=== PATIENT | male | born 2000 | race Caucasian/White ===

== ENCOUNTER 2024-07-06 20:58 | Inpatient (IN) ==
[2024-07-06] MEDS: LACTATED RINGER'S 1,000 ML IV ONE (21:29)
[2024-07-06] MEDS: CEFEPIME 2000MG 2,000 MG/20 ML SYR IV STA (21:42)
[2024-07-06 21:52] LABS: Basophils # (auto) 0.05 K/uL (0.00-0.20); Basophils % (auto) 0.6 %; Eosinophils # (auto) 0.34 K/uL (0.00-0.50); Eosinophils % (auto) 3.8 %; Hematocrit (blood only) 47.3 % (42.0-52.0); Hemoglobin 16.2 g/dl (14.0-18.0); Immature Granulocytes # (auto) 0.14 K/uL (0.01-0.20); Immature Granulocytes % (auto) 1.6 %; Lymphocytes # (auto) 1.19 K/uL (1.20-3.40); Lymphocytes % (auto) 13.3 %; Mean Corpuscular Hemoglobin 28.6 pg (25.0-34.0); Mean Corpuscular Hgb Conc 34.2 g/dL (32.0-36.0); Mean Corpuscular Volume 83.4 fL (80.0-100.0); Monocytes % (auto) 7.8 %; Neutrophils % (auto) 72.9 %; Platelet Count 359 K/uL (130-400); RDW Coefficient of Variation 11.7 % (11.5-14.5); RDW Standard Deviation 35.2 fL (36.4-46.3); Red Blood Count 5.67 M/uL (4.70-6.10); White Blood Count 8.92 K/ul (4.8-10.8)
[2024-07-06] MEDS ORDERED: Patient's ALLERGY Info needs ENTERED STA (22:00)
[2024-07-06 22:06] LABS: Albumin Globulin Ratio 1.2 (0.9-2); Albumin Level 4.6 gm/dl (3.4-5.0); BUN Creatinine Ratio 11.4 (10-20); Bilirubin,Total 0.5 mg/dl (0.2-1.0); Calcium 9.8 mg/dl (8.6-10.3); Globulin 3.9 gm/dl (2.5-4.0); Potassium 3.7 mmol/L (3.5-5.1); Total Protein 8.5 gm/dl (6.0-8.3)
[2024-07-06 22:13] LABS: Troponin I High Sensitivity 3.4 pg/ml (0-20)
[2024-07-06] MEDS: OPTIRAY 320 125ml IV ONE (22:19)
--- NOTE | 2024-07-06 22:39 | Emergency Department Note ---
Impression & Plan Multifocal pneumonia, Infection, mycoplasma ED Provider Note NAME: FÁTIMA LAI AGE: 23 SEX: Male INFORMANT: Patient ED PROVIDER(S): Alex Quesada MD CHIEF COMPLAINT: Shortness of breath PLAN: Disposition: Admitted Outpatient prescription management: none Referral: None MEDICAL DECISION MAKING: Patient was evaluated. History is concerning for pneumonia. Patient was hypoxic but responded well to nasal cannula oxygen. He was tachycardic. Patient was started on lactated Ringer hydration. Blood cultures were obtained additional blood work done as well. He was doing well with supplemental nasal cannula oxygen. IV cefepime and doxycycline was ordered. ECG showed a sinus tachycardia with a nonspecific ST abnormality inferiorly. Patient had an unremarkable CBC and chemistry panel. Troponin negative. Lactate normal. Patient will require further management in the hospital. CT imaging was performed and did reveal multifocal pneumonia. Official read is currently pending. Patient's heart rate did improved with hydration. Consultation was made with Dr. Sandoval of the [facility] service. Patient was evaluated in the ER for further management. BioFire testing did return the presence of mycoplasma. This would explain why he did not respond to the Augmentin. Care/management discussed with: none Level of care consideration(s): After review of the information above and other included data, I feel the patient requires escalation of care to admission. Triage Nursing notes: reviewed and agree them. Vital Signs: reviewed and remarkable for hypoxia and tachycardia Additional History obtained from: none Chronic Medical/Social Conditions affecting care: none Prior/ Outside/ External records reviewed: none Differential Diagnosis: Reactive airway disease, pneumonia, pneumothorax, COPD, CHF, infections, cardiac ischemia, pulmonary embolism, musculoskeletal, gastrointestinal, as well as other pathologies. Diagnostics, independently interpreted by me: ECG: Twelve-lead ECG reveals sinus tachycardia at 139 bpm. Rightward axis. Inferior nonspecific ST abnormality. No ST elevation. No ST depression. Cardiac Monitoring: Cardiac monitoring ordered by me: The patient was placed on continuous cardiac monitoring and observed. It revealed a sinus tachycardic rhythm at 122 beats per minute without ectopy or evidence of dysrhythmia. Medical decision rules: none Imaging studies: Chest x-ray reveals presence of multifocal pneumonia with large infiltrate on the right base. HPI: 23 year old Male arrives for evaluation of shortness of breath. This started a week ago and is worsening. Patient states that he went to urgent care and was diagnosed with pneumonia. He was placed on Augmentin.. The patient also notes the following associated symptoms, fevers, chills, cough, fatigue, decreased p.o. intake. The patient has found no relieving factors. Current pain is rated as 0/10. Pt denies LOC, headache, diaphoresis, visual changes, neck pain, chest pain, nausea, vomiting, abdominal pain, back pain, melena, hematochezia, urinary symptoms, numbness, weakness, lymphadenopathy, rash, or other complaints.. PAST MEDICAL HISTORY: See Below, PAST SURGICAL HISTORY: See Below, SOCIAL HISTORY: See Below, [facility] MEDICATIONS: See Below ALLERGIES: See Below VITALS: See Below PHYSICAL EXAMINATION: GENERAL: Awake, alert, mildly dyspneic-appearing, in no distress HENT: Normocephalic, atraumatic. Oropharynx unremarkable. EYES: Normal conjunctiva. Sclera non-icteric. NECK: Inspection normal. Non-tender. Supple. No nuchal rigidity. FROM. No masses. RESPIRATORY: Diminished in the bases bilaterally but more so on the right. Rhonchi noted on the right. No wheezes. Few scattered rales on the right. Normal respiratory effort. CARDIAC: Normal rate. Normal rhythm. No murmurs. No rubs. Extremities warm and well perfused. Pulses equal. No JVD. GI: Soft, non-distended. No tenderness to palpation. No rebound or guarding. No masses. RECTAL: Deferred. MUSCULOSKELETAL: Atraumatic. Chest examination reveals no tenderness. The back is symmetrical on inspection without obvious abnormality. There is no CVA tenderness to palpation. No joint edema. LOWER EXTREMITIES: Calves are equal size bilaterally and non-tender. No edema. No discoloration. NEURO: Normal sensorium. No sensory or motor deficits noted. SKIN: No rash or jaundice noted. PROCEDURES: none CRITICAL CARE: I have personally spent 30 minutes of critical care time in the direct management of this patient. This includes bedside care, interpretation of diagnostic studies, and testing, discussion with consultants, patient, and other required patient management activities. This 30 minutes is in excess of all separately billable procedures. OBSERVATION NOTE: none Past Med/Surg History Problem List (Updated 07/07/24 @ 00:57 by Alex Quesada MD) Infection, mycoplasma (Acute) Multifocal pneumonia (Acute) Social History Smoking Status: Never smoker Preferred Language: Romanian Feels Safe at Home: Yes Results & Data (ED) Vital Signs Vital Signs - 24 hr 07/06/24 21:05 07/06/24 21:05 07/06/24 21:19 Temperature 36.6 C Temperature Source Temporal Artery Scan Pulse Rate 139 H 136 H Pulse Rate [Apical] Pulse Rate from SpO2 Sensor Pulse Rhythm Pulse Rhythm [Apical] Pulse Strength [Apical] Respiratory Rate 18 Respiratory Effort / Characteristics Non-Labored Accessory Muscle Use Respiratory Depth Normal Respiratory Pattern Regular Blood Pressure 164/79 H Blood Pressure [Right Arm] Blood Pressure Mean 107 Blood Pressure Mean [Right Arm] Blood Pressure Position Sitting Blood Pressure Position [Right Arm] Pulse Oximetry 87 L 93 Oxygen Delivery Method Room Air Nasal Cannula Oxygen Flow Rate 3 Sepsis New/Unexplained Change in Mental Status N/A Sepsis Action Taken by Nursing No Action Required 07/06/24 21:21 07/06/24 21:30 07/06/24 21:33 Temperature Temperature Source Pulse Rate 141 H 137 H Pulse Rate [Apical] 122 H Pulse Rate from SpO2 Sensor 142 H Pulse Rhythm Regular Pulse Rhythm [Apical] Regular Pulse Strength [Apical] Normal Respiratory Rate 31 H 22 18 Respiratory Effort / Characteristics Non-Labored Spontaneous Respiratory Depth Normal Respiratory Pattern Regular Blood Pressure Blood Pressure [Right Arm] 136/96 Blood Pressure Mean Blood Pressure Mean [Right Arm] 109 Blood Pressure Position Blood Pressure Position [Right Arm] Semi-fowlers Pulse Oximetry 91 93 93 Oxygen Delivery Method Nasal Cannula Nasal Cannula Oxygen Flow Rate 3 2 Sepsis New/Unexplained Change in Mental Status Sepsis Action Taken by Nursing 07/06/24 21:33 07/06/24 21:33 07/06/24 22:42 Temperature Temperature Source Pulse Rate 125 H 129 H Pulse Rate [Apical] Pulse Rate from SpO2 Sensor 126 H 128 H Pulse Rhythm Pulse Rhythm [Apical] Pulse Strength [Apical] Respiratory Rate 32 H 24 Respiratory Effort / Characteristics Respiratory Depth Respiratory Pattern Blood Pressure 136/96 Blood Pressure [Right Arm] Blood Pressure Mean 113 Blood Pressure Mean [Right Arm] Blood Pressure Position Blood Pressure Position [Right Arm] Pulse Oximetry 94 96 Oxygen Delivery Method Oxygen Flow Rate Sepsis New/Unexplained Change in Mental Status Sepsis Action Taken by Nursing 07/06/24 23:00 07/06/24 23:00 07/06/24 23:00 Temperature Temperature Source Pulse Rate 122 H Pulse Rate [Apical] Pulse Rate from SpO2 Sensor Pulse Rhythm Pulse Rhythm [Apical] Pulse Strength [Apical] Respiratory Rate 32 H Respiratory Effort / Characteristics Respiratory Depth Respiratory Pattern Blood Pressure 146/92 H 146/92 H Blood Pressure [Right Arm] Blood Pressure Mean 96 96 Blood Pressure Mean [Right Arm] Blood Pressure Position Blood Pressure Position [Right Arm] Pulse Oximetry Oxygen Delivery Method Oxygen Flow Rate Sepsis New/Unexplained Change in Mental Status Sepsis Action Taken by Nursing 07/06/24 23:00 07/06/24 23:00 Temperature Temperature Source Pulse Rate Pulse Rate [Apical] Pulse Rate from SpO2 Sensor Pulse Rhythm Pulse Rhythm [Apical] Pulse Strength [Apical] Respiratory Rate Respiratory Effort / Characteristics Respiratory Depth Respiratory Pattern Blood Pressure 146/92 H 146/92 H Blood Pressure [Right Arm] Blood Pressure Mean 96 96 Blood Pressure Mean [Right Arm] Blood Pressure Position Blood Pressure Position [Right Arm] Pulse Oximetry Oxygen Delivery Method Oxygen Flow Rate Sepsis New/Unexplained Change in Mental Status Sepsis Action Taken by Nursing Laboratory Data 07/06/24 21:30 07/06/24 21:30 Lab Results 07/06/24 07/06/24 Range/Units 21:30 21:32 WBC 8.92 (4.8-10.8) K/ul RBC 5.67 (4.70-6.10) M/uL Hgb 16.2 (14.0-18.0) g/dl Hct 47.3 (42.0-52.0) % MCV 83.4 (80.0-100.0) fL MCH 28.6 (25.0-34.0) pg MCHC 34.2 (32.0-36.0) g/dL RDW Std Deviation 35.2 L (36.4-46.3) fL RDW Coeff of Ander 11.7 (11.5-14.5) % Plt Count 359 (130-400) K/uL MPV 10.0 (9.4-12.4) fL Immature Gran % (Auto) 1.6 % Neut % (Auto) 72.9 % Lymph % (Auto) 13.3 % [place] % (Auto) 7.8 % Eos % (Auto) 3.8 % Baso % (Auto) 0.6 % Neut # (Auto) 6.50 (1.40-6.50) K/uL Lymph # (Auto) 1.19 L (1.20-3.40) K/uL [place] # (Auto) 0.70 H (0.11-0.59) K/uL Eos # (Auto) 0.34 (0.00-0.50) K/uL Baso # (Auto) 0.05 (0.00-0.20) K/uL Immature Gran # (Auto) 0.14 (0.01-0.20) K/uL Sodium 136 (136-145) mmol/L Potassium 3.7 (3.5-5.1) mmol/L Chloride 97 L (98-107) mmol/L Carbon Dioxide 30 (21-32) mmol/L Anion Gap 9 (3-11) BUN 10 (6-23) mg/dl Creatinine 0.88 (0.6-1.4) mg/dl Est Cr Clr Drug Dosing 136.0 ml/min eGFR 124.68 BUN/Creatinine Ratio 11.4 (10-20) Glucose 125 H (70-99(Fasting)) mg/dl Lactate 1.1 (0.4-2.0) mmol/L Calcium 9.8 (8.6-10.3) mg/dl Total Bilirubin 0.5 (0.2-1.0) mg/dl AST 29 (13-39) U/L ALT 47 (7-52) U/L Alkaline Phosphatase 69 (34-104) U/L Troponin I High Sens 3.4 (0-20) pg/ml Total Protein 8.5 H (6.0-8.3) gm/dl Albumin 4.6 (3.4-5.0) gm/dl Globulin 3.9 (2.5-4.0) gm/dl Albumin/Globulin Ratio 1.2 (0.9-2) Procalcitonin 0.03 (0-0.5) ng/ml Adenovirus (PCR) Not Detected (NotDetected) B. pertussis DNA (PCR) Not Detected (NotDetected) B.parapertussis DNA PCR Not Detected (NotDetected) C. pneumoniae DNA (PCR) Not Detected (NotDetected) Coronavirus OC43 (PCR) Not Detected (NotDetected) Coronavirus HKU1 (PCR) Not Detected (NotDetected) Coronavirus 229E (PCR) Not Detected (NotDetected) SARS-CoV-2 (PCR) Not Detected (NotDetected) Coronavirus NL63 (PCR) Not Detected (NotDetected) Human Metapneumovir PCR Not Detected (NotDetected) Influenza Type A (PCR) Not Detected (NotDetected) Influenza Type B (PCR) Not Detected (NotDetected) M. pneumoniae (PCR) DETECTED A (NotDetected) Parainfluenza 1 (PCR) Not Detected (NotDetected) Parainfluenza 2 (PCR) Not Detected (NotDetected) Parainfluenza 3 (PCR) Not Detected (NotDetected) Parainfluenza 4 (PCR) Not Detected (NotDetected) RSV (PCR) Not Detected (NotDetected) Entero/Rhino (PCR) Not Detected (NotDetected) Administered Medications Discontinued Medications Lactated Ringer's (Lr) 1,000 mls @ 125 mls/hr IV .Q8H ERLINDA Stop: 08/05/24 21:29 Last Admin: 07/06/24 23:10 Dose: 125 mls/hr Documented By: JOHAN Lactated Ringer's (Lr) 1,000 mls @ 999 mls/hr IV .Q1H1M ONE Stop: 07/06/24 22:20 Last Infusion: 07/06/24 22:38 Dose: Infused Documented By: Admin: 07/06/24 21:29 Dose: 999 mls/hr Documented By: LEE Doxycycline Hyclate 100 mg/ (Dextrose) 100 mls @ 50 mls/hr IV NOW STA Stop: 07/06/24 23:34 Last Admin: 07/06/24 23:10 Dose: 50 mls/hr Documented By: JOHAN Cefepime HCl (Maxipime 2000mg) 2,000 mg in 20 mls @ 5 mls/min IV NOW STA; Protocol Stop: 07/06/24 21:38 Last Admin: 07/06/24 21:42 Dose: 5 mls/min Documented By: LEE Ioversol (Optiray 320 125ml) 119 ml IV ONCE ONE Stop: 07/06/24 22:19 Last Admin: 07/06/24 22:19 Dose: 119 ml Documented By: MARLEEN Imaging Data Radiologist's Impression: Chest CTA 07/06/24 21:35 Exam(s): CTA CHEST IV Amt: 119ml optiray 320 EXAM: CT Angiography Chest With Intravenous Contrast CLINICAL HISTORY: Reason for exam: Hypoxia, sob RLL infiltrate. TECHNIQUE: Axial computed tomographic angiography images of the chest with intravenous contrast. CTDI is 17.71 mGy and DLP is 586.46 mGy-cm. Automated exposure control was utilized for the study. A dose lowering technique was utilized adhering to the principles of ALARA. MIP reconstructed images were created and reviewed. COMPARISON: No relevant prior studies available. FINDINGS: Pulmonary arteries: Unremarkable. No pulmonary embolism. Aorta: No acute findings. No thoracic aortic aneurysm. Lungs: Bilateral airspace consolidations, preferentially involving the lower lobes, consistent with multilobar pneumonia. Pleural space: Unremarkable. No significant effusion. No pneumothorax. Heart: Unremarkable. No cardiomegaly. No significant pericardial effusion. No evidence of RV dysfunction. Bones/joints: No acute fracture. No dislocation. Soft tissues: Unremarkable. Lymph nodes: Unremarkable. No enlarged lymph nodes. IMPRESSION: 1. No pulmonary embolism. 2. Bilateral airspace consolidations, preferentially involving the lower lobes, consistent with multilobar pneumonia. Electronically signed by: Kash Damico MD 07/07/24 00:05 AM Discharge Plan Visit Data Chief Complaint: Shortness of Breath/Dyspnea Stated Complaint: PEUMONIA, ON ANTIBIOTIC, SOB, FATIGUE/WEAK ED Provider: Alex Quesada Discharge Problem: Multifocal pneumonia, Infection, mycoplasma Discharge Instructions Interventions: ED Discharge Assessment Last Done: 07/07/24 00:23
[2024-07-06 22:46] LABS: Appearance Urine Clear (Clear); Bilirubin Urine Negative (Negative); Blood Urine Negative (Negative); Color Urine Yellow; Glucose Urine UA Negative (Negative); Ketones Urine Trace (Negative); Leukocyte Esterase Urine Negative (Negative); Nitrite Urine Negative (Negative); Protein Urine Negative (Negative); Urobilinogen Urine Negative (Negative)
[2024-07-06 22:58] LABS: Adenovirus PCR Not Detected (NotDetected); Bordetella parapertussis PCR Not Detected (NotDetected); Bordetella pertussis PCR Not Detected (NotDetected); Chlamydia pneumoniae PCR Not Detected (NotDetected); Coronavirus 229E PCR Not Detected (NotDetected); Coronavirus CoV-2 (COVID19)PCR Not Detected (NotDetected); Coronavirus HKU1 PCR Not Detected (NotDetected); Coronavirus NL63 PCR Not Detected (NotDetected); Coronavirus OC43PCR Not Detected (NotDetected); Human Metapneumovirus PCR Not Detected (NotDetected); Influenza A PCR Not Detected (NotDetected); Influenza B PCR Not Detected (NotDetected); Mycoplasma pneumoniae PCR DETECTED (NotDetected); Parainfluenza Virus 1 PCR Not Detected (NotDetected); Parainfluenza Virus 2 PCR Not Detected (NotDetected); Parainfluenza Virus 3 PCR Not Detected (NotDetected); Parainfluenza Virus 4 PCR Not Detected (NotDetected); Respiratory Syncytial VirusPCR Not Detected (NotDetected); Rhinovirus/Enterovirus PCR Not Detected (NotDetected)
--- NOTE | 2024-07-06 23:02 | History & Physical Report ---
Date of Service July 06, 2024 Assessment & Plan (1) Infection, mycoplasma: Plan: 23yo male presenting with > 1 week of cough, pleuritic chest pain, overall fatigue, generalized weakness and doing poorly at home. Patient was previously diagnosed with PNA and has been on Augmentin for the last several days. He presents today with tachycardia, hypoxia requiring supplemental O2 Laboratory workup is unremarkable with exception of Respiratory Biofire panel showing Mycoplasma CT of the chest as above with multifocal PNA -Admit to medical -Follow cultures sent from the ER -Continue supplemental O2 as needed -Ceftriaxone 1gm IV daily -Doxycycline 100mg po BID -LR at 125mL/hr x 2L -Tylenol as needed for pain or fever -Robitussin as needed for cough -Albuterol as needed for SOB or wheeze -Zofran as needed for nausea F/E/N - LR at 125mL/hr x 2L, electrolytes WNL, Regular diet as tolerated Ppx - low risk for DVT, encourage ambulation Code - Full Dispo - Admit to medical History of Present Illness Chief Complaint: pneumonia Primary Care Provider: [facility] Raman Mcdonald is a 23yo male with history of asthma, PNA as a child presenting with 9 days of fever, night sweats, cough and congestion as well as sharp, pleuritic chest discomfort. Patient was seen at [facility] on 06/30/24 and was diagnosed with pneumonia by CXR. He was prescribed Augmentin which he has been taking this as prescribed. He reports that his fever improved, but overall he continues to have symptoms. Today he felt very light headed and short of breath. He reports that he has been at home alone as his roommate moved out because he didn't want to get sick. He has been having a difficult time getting out of bed, cooking for himself and has not been eating or drinking much due to fatigue and generalized weakness. He has also has had diarrhea. In the ER he is afebrile, tachycardic, saturating 87% on room air on arrival. He was placed on supplemental O2 by NC - presently saturating 93% on 3L NC. 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 Asthma Surgical History (Updated 07/07/24 @ 04:34 by Rossy Sandoval DO) History of wisdom tooth extraction Family History (Updated 07/07/24 @ 04:34 by Rossy Sandoval DO) Other No significant family history Social History Smoking Status: Never smoker Tobacco Type: E-cigarettes / Vaping Second Hand Exposure: No; Do You Dip or Chew Tobacco: No; Hx Alcohol Use: Yes Alcohol type: beer Hx Substance Use: No Preferred Language: [place] Citizen Indigo V[employer] Tender Cloth Required: No Beliefs That Will Affect Care: None Current Living Situation: Other Current Living Situation Comment: lives in student housing with 1 roommate Feels Safe at Home: Yes Safety Concerns: Feels Safe At This Time Assistive Devices: None Review of Systems Review of Systems: All systems reviewed & are unremarkable except as noted in HPI & below Physical Exam Physical Exam: General: patient resting comfortably, NAD, non-toxic in appearance, AA&O x 4, anxious Skin: warm, dry, intact, no rashes or lesions HEENT: NC/AT, PERRL, EOMI, anicteric sclera, conjunctiva without injection, external ear normal to inspection and nontender, nares patent, dry mucus membranes, dentition intact, no oropharyngeal lesions, neck supple, trachea midline, no LAD, no thyromegaly, no JVD Heart: +S1/S2, regular, tachycardic, no m/r/g Lungs: equal air entry bilaterally, some coarse breath sounds in bilateral bases, no wheezing, cough with deep breathing Abd: +BS, soft, NT/ND, no masses/organomegaly/ascites Ext: warm, 2+ pulses in UE/LE bilaterally, no clubbing/cyanosis or edema Neuro: nonfocal, patient AA&O x 4, speech intact, no facial droop, moving all extremities on command with equal strength 5/5 Results & Data Results & Data Vital Signs (Past 12 Hours) Vital Signs Temp Pulse Pulse Resp BP BP Pulse Ox 07/06/24 21:33 136/96 07/06/24 21:33 125 H 32 H 94 07/06/24 21:33 122 H 18 136/96 93 10/02/24 21:30 137 H 22 93 07/06/24 21:21 141 H 31 H 91 07/06/24 21:19 136 H 07/06/24 21:05 93 07/06/24 21:05 36.6 C 139 H 18 164/79 H 87 L O2 Del Method O2 Flow Rate 07/06/24 21:33 07/06/24 21:33 07/06/24 21:33 Nasal Cannula 2 07/06/24 21:30 Nasal Cannula 3 07/06/24 21:21 07/06/24 21:19 07/06/24 21:05 Nasal Cannula 3 07/06/24 21:05 Room Air Laboratory Results Laboratory Results WBC 8.92 K/ul (4.8-10.8) 07/06/24 21:30 RBC 5.67 M/uL (4.70-6.10) 07/06/24 21:30 Hgb 16.2 g/dl (14.0-18.0) 07/06/24 21:30 Hct 47.3 % (42.0-52.0) 07/06/24 21:30 MCV 83.4 fL (80.0-100.0) 07/06/24 21:30 MCH 28.6 pg (25.0-34.0) 07/06/24 21:30 MCHC 34.2 g/dL (32.0-36.0) 07/06/24 21:30 RDW Std Deviation 35.2 fL (36.4-46.3) L 07/06/24:30 RDW Coeff of Ander 11.7 % (11.5-14.5) 07/06/24 21:30 Plt Count 359 K/uL (130-400) 07/06/24 21:30 MPV 10.0 fL (9.4-12.4) 07/06/24 21:30 Immature Gran % (Auto) 1.6 % 07/06/24 21: Neut % (Auto) 72.9 % 07/06/24 21:30 Lymph % (Auto) 13.3 % 07/06/24 21:30 [place] % (Auto) 7.8 % 07/06/24 21:30 Eos % (Auto) 3.8 % 07/06/24 21:30 Baso % (Auto) 0.6 % 07/06/24 21:30 Neut # (Auto) 6.50 K/uL (1.40-6.50) 07/06/24 21:30 Lymph # (Auto) 1.19 K/uL (1.20-3.40) L 07/06/24 21:30 [place] # (Auto) 0.70 K/uL (0.11-0.59) H 07/06/24 21:30 Eos # (Auto) 0.34 K/uL (0.00-0.50) 07/06/24 21:30 Baso # (Auto) 0.05 K/uL (0.00-0.20) 07/06/24 21:30 Immature Gran # (Auto) 0.14 K/uL (0.01-0.20) 07/06/24 21:30 Sodium 136 mmol/L (136-145) 07/06/24 21:30 Potassium 3.7 mmol/L (3.5-5.1) 07/06/24:30 Chloride 97 mmol/L (98-107) L 07/06/24 21:30 Carbon Dioxide 30 mmol/L (21-32) 07/06/24 21:30 Anion Gap 9 (3-11) 07/06/24:30 BUN 10 mg/dl (6-23) 07/06/24:30 Creatinine 0.88 mg/dl (0.6-1.4) 07/06/24 21:30 Est Cr Clr Drug Dosing 136.0 ml/min 07/06/24:30 eGFR 124.68 07/06/24 21:30 BUN/Creatinine Ratio 11.4 (10-20) 07/06/24 21:30 Glucose 125 mg/dl (70-99(Fasting)) H 07/06/24:30 Lactate 1.1 mmol/L (0.4-2.0) 07/06/24:30 Calcium 9.8 mg/dl (8.6-10.3) 07/06/24 21:30 Total Bilirubin 0.5 mg/dl (0.2-1.0) 07/06/24 21:30 AST 29 U/L (13-39) 07/06/24 21:30 ALT 47 U/L (7-52) 07/06/24 21:30 Alkaline Phosphatase 69 U/L (34-104) 07/06/24 21:30 Troponin I High Sens 3.4 pg/ml (0-20) 07/06/24 21:30 Total Protein 8.5 gm/dl (6.0-8.3) H 07/06/24 21:30 Albumin 4.6 gm/dl (3.4-5.0) 07/06/24 21: Globulin 3.9 gm/dl (2.5-4.0) 07/06/24 21:30 Albumin/Globulin Ratio 1.2 (0.9-2) 07/06/24 21:30 Procalcitonin 0.03 ng/ml (0-0.5) 07/06/24 21:30 Urine Color Yellow 07/06/24 Unknown Urine Appearance Clear (Clear) 07/06/24 Unknown Urine pH 7.0 (4.5-7.5) 07/06/24 Unknown Ur Specific [place] 1.020 (1.000-1.030) 07/06/24 Unknown Urine Protein Negative (Negative) 07/06/24 Unknown Urine Glucose (UA) Negative (Negative) 07/06/24 Unknown Urine Ketones Trace (Negative) H 07/06/24 Unknown Urine Blood Negative (Negative) 07/06/24 Unknown Urine Nitrite Negative (Negative) 07/06/24 Unknown Urine Bilirubin Negative (Negative) 07/06/24 Unknown Urine Urobilinogen Negative (Negative) 07/06/24 Unknown Ur Leukocyte Esterase Negative (Negative) 07/06/24 Unknown Adenovirus (PCR) Not Detected (NotDetected) 07/06/24 21:32 B. pertussis DNA (PCR) Not Detected (NotDetected) 07/06/24 21:32 B.parapertussis DNA PCR Not Detected (NotDetected) 07/06/24 21:32 C. pneumoniae DNA (PCR) Not Detected (NotDetected) 07/06/24 21:32 Coronavirus OC43 (PCR) Not Detected (NotDetected) 07/06/24 21:32 Coronavirus HKU1 (PCR) Not Detected (NotDetected) 07/06/24 21:32 Coronavirus 229E (PCR) Not Detected (NotDetected) 07/06/24 21:32 SARS-CoV-2 (PCR) Not Detected (NotDetected) 07/06/24 21:32 Coronavirus NL63 (PCR) Not Detected (NotDetected) 07/06/24 21:32 Human Metapneumovir PCR Not Detected (NotDetected) 07/06/24 21:32 Influenza Type A (PCR) Not Detected (NotDetected) 07/06/24 21:32 Influenza Type B (PCR) Not Detected (NotDetected) 07/06/24 21:32 M. pneumoniae (PCR) DETECTED (NotDetected) A 07/06/24 21:32 Parainfluenza 1 (PCR) Not Detected (NotDetected) 07/06/24 21:32 Parainfluenza 2 (PCR) Not Detected (NotDetected) 07/06/24 21:32 Parainfluenza 3 (PCR) Not Detected (NotDetected) 07/06/24 21:32 Parainfluenza 4 (PCR) Not Detected (NotDetected) 07/06/24 21:32 RSV (PCR) Not Detected (NotDetected) 07/06/24 21:32 Entero/Rhino (PCR) Not Detected (NotDetected) 07/06/24 21:32 Impressions Chest CTA 07/06/24 21:35 Exam(s): CTA CHEST IV Amt: 119ml optiray 320 EXAM: CT Angiography Chest With Intravenous Contrast CLINICAL HISTORY: Reason for exam: Hypoxia, sob RLL infiltrate. TECHNIQUE: Axial computed tomographic angiography images of the chest with intravenous contrast. CTDI is 17.71 mGy and DLP is 586.46 mGy-cm. Automated exposure control was utilized for the study. A dose lowering technique was utilized adhering to the principles of ALARA. MIP reconstructed images were created and reviewed. COMPARISON: No relevant prior studies available. FINDINGS: Pulmonary arteries: Unremarkable. No pulmonary embolism. Aorta: No acute findings. No thoracic aortic aneurysm. Lungs: Bilateral airspace consolidations, preferentially involving the lower lobes, consistent with multilobar pneumonia. Pleural space: Unremarkable. No significant effusion. No pneumothorax. Heart: Unremarkable. No cardiomegaly. No significant pericardial effusion. No evidence of RV dysfunction. Bones/joints: No acute fracture. No dislocation. Soft tissues: Unremarkable. Lymph nodes: Unremarkable. No enlarged lymph nodes. IMPRESSION: 1. No pulmonary embolism. 2. Bilateral airspace consolidations, preferentially involving the lower lobes, consistent with multilobar pneumonia. Electronically signed by: Kash Damico MD 07/07/24 00:05 AM ECG Additional Comments: EKG with sinus tachycardia at 139bpm, rightward axis, BA=324, QRS=94, CWz=673, no acute ischemic changes PG Care Time/CCT Total # of Minutes Spent Total Time Spent with Patient: Total time spent is greater than 50% in coordination of care (as documented) at patient's floor/unit and/or counseling patient: Coding Level of Care Code 31682 INT INP/OBS CARE 2/55MIN Diagnoses Infection, mycoplasma A49.3
[2024-07-06] MEDS: LACTATED RINGER'S 1,000 ML IV SCH (23:10)
[2024-07-06] MEDS: DOXYCYCLINE HYCLATE 100 MG in DEXTROSE 5% MINI-B 100 ML IV STA (23:10)
--- NOTE | 2024-07-07 00:07 | CT Scan Report ---
Exam(s): CTA CHEST IV Amt: 119ml optiray 320 EXAM: CT Angiography Chest With Intravenous Contrast CLINICAL HISTORY: Reason for exam: Hypoxia, sob RLL infiltrate. TECHNIQUE: Axial computed tomographic angiography images of the chest with intravenous contrast. CTDI is 17.71 mGy and DLP is 586.46 mGy-cm. Automated exposure control was utilized for the study. A dose lowering technique was utilized adhering to the principles of ALARA. MIP reconstructed images were created and reviewed. COMPARISON: No relevant prior studies available. FINDINGS: Pulmonary arteries: Unremarkable. No pulmonary embolism. Aorta: No acute findings. No thoracic aortic aneurysm. Lungs: Bilateral airspace consolidations, preferentially involving the lower lobes, consistent with multilobar pneumonia. Pleural space: Unremarkable. No significant effusion. No pneumothorax. Heart: Unremarkable. No cardiomegaly. No significant pericardial effusion. No evidence of RV dysfunction. Bones/joints: No acute fracture. No dislocation. Soft tissues: Unremarkable. Lymph nodes: Unremarkable. No enlarged lymph nodes. IMPRESSION: 1. No pulmonary embolism. 2. Bilateral airspace consolidations, preferentially involving the lower lobes, consistent with multilobar pneumonia. Electronically signed by: Kash Damico MD 07/07/24 00:05 AM
[2024-07-07] MEDS ORDERED: ONDANSETRON INJ 2 MG/ML 2 ML VIAL IV PRN (00:44)
[2024-07-07] MEDS ORDERED: ACETAMINOPHEN 325 MG TAB PO PRN (00:44)
[2024-07-07] MEDS: LACTATED RINGER'S 1,000 ML IV SCH (01:30)
[2024-07-07] MEDS ORDERED: guaiFENesin/DEXTROM SYRUP 200MG/20MG 10ML UDC PO PRN (04:40)
[2024-07-07] MEDS: cefTRIAXone SODIUM 1,000 MG/50 ML BAG IV SCH (06:00)
[2024-07-07] MEDS: ALBUTEROL HFA 8 GM INHALER INH PRN (06:16)
--- NOTE | 2024-07-07 06:54 | XRay Report ---
XR chest 1V portable HISTORY: 23 years-old Male Dyspnea acute shortness of breath COMPARISON: CTA chest of same day TECHNIQUE: AP view of the chest FINDINGS: Heart size is normal. There is no pneumothorax or large pleural effusion. Patchy multifocal air space opacities are most pronounced within the right greater than left lung bases. Mixed interstitial and alveolar opacities within the mid to upper lung zones. Bones appear normal. IMPRESSION: Multifocal pneumonia. ACT 112: Negative or not required by law. The above report was generated using voice recognition software. It may contain grammatical, syntax o r spelling errors. Electronically signed by: Boo Singh M.D. 07/07/2024 6:53 AM
--- NOTE | 2024-07-07 07:19 | Electrocardiogram Report ---
Test Reason : Blood Pressure : */* mmHG Vent. Rate : 139 BPM Atrial Rate : 139 BPM P-R Int : 142 ms QRS Dur : 94 ms QT Int : 276 ms P-R-T Axes : 69 101 -16 degrees QTcB Int : 419 ms Sinus tachycardia Rightward axis T wave abnormality, consider inferior ischemia Abnormal ECG No previous ECGs available Confirmed by Garett Peralta ([id number]) on 07/07/2024 7:18:53 AM Referred By: Confirmed By: Garett Peralta
[2024-07-07] MEDS: DOXYCYCLINE HYCLATE 100 MG in DEXTROSE 5% MINI-B 100 ML IV SCH (07:56)
[2024-07-07 09:00] LABS: Hematocrit (blood only) 40.2 % (42.0-52.0); Hemoglobin 13.5 g/dl (14.0-18.0); Mean Corpuscular Hemoglobin 28.4 pg (25.0-34.0); Mean Corpuscular Hgb Conc 33.6 g/dL (32.0-36.0); Mean Corpuscular Volume 84.5 fL (80.0-100.0); Mean Platelet Volume 9.9 fL (9.4-12.4); Platelet Count 314 K/uL (130-400); RDW Coefficient of Variation 11.8 % (11.5-14.5); RDW Standard Deviation 35.8 fL (36.4-46.3); Red Blood Count 4.76 M/uL (4.70-6.10); White Blood Count 7.84 K/ul (4.8-10.8)
[2024-07-07 09:14] LABS: BUN Creatinine Ratio 10.8 (10-20); Creatinine Clr Calc Pharmacy 144.1 ml/min; Potassium 4.1 mmol/L (3.5-5.1)
--- NOTE | 2024-07-07 10:08 | Hospitalist Progress Note ---
Date of Service July 07, 2024 Assessment & Plan (1) Infection, mycoplasma: Plan 23yo male with PMH of asthma presenting with > 1 week of cough, pleuritic chest pain, overall fatigue, and generalized weakness. Mycoplasma pneumonia - Diagnosed with PNA 06/30 at [facility] via CXR; took 5 days Augmentin - Tachycardic to 139 and hypoxic to 87% upon arrival, requiring supplemental O2 - S/p LR at 125mL/hr x 2L - Respiratory Biofire panel showing Mycoplasma pneumoniae (PCR) + - CT of the chest showing multifocal PNA - IV Rocephin 1000mg daily and po Doxycycline 100mg BID - Tylenol as needed for pain or fever - Robitussin as needed for cough - Albuterol as needed for SOB or wheeze - Zofran as needed for nausea - Continue supplemental O2, 3-5L n.c. - Follow cultures sent from the ER - C/f immunocompromise d/t young, healthy individual w atypical PNA check for HIV, TB IgG, IgA, and IgM wnl Ppx - low risk for DVT, encourage ambulation Code - Full Dispo - Admit to medical Admission and Anticipated Discharge Date Admission Date: July 06, 2024 Supervising Physician Co-Signing Physician Notes Attending attestation Pt seen and examined in concert with Dr. Lizama. In agreement with the documented findings as noted in the resident documentation with any exceptions or additions as noted here. Gradually improving shortness of breath but still SOBOE. On examination, S1/S2 nl RRR no MCG. decreased breathsounds at bases, scattered bilateral rales. Abd NT/ND BS+ve Multifocal mycoplasma PNA - continue abx therapy and O2 per protocol. Follow up Cx and supportive lab studies. Extensive counseling on prognosis, treatment, outcomes and supportive services available in the setting of PNA delivered to both patient and parent. Else see resident documentation as noted. Total attending time spent with this patient's care on this day of evaluation - 55 minutes. Subjective Feeling very well today. Says he's had sx ~10 days, had to miss 2 weeks' worth of classes, brought to the hospital by his fam after not being able to take care of/cook for himself. Endorses some congestion and cough, both improved since admission. Denies GALLOWAY, CP, GI/ distress, body aches. Eating, drinking, and speaking with ease. Review of Systems 2 Review of Systems: Per HPI Results & Data Results & Data Vital Signs (Past 12 Hours) Vital Signs Temp Pulse Pulse Pulse Resp BP BP 07/07/24 09:38 102 H 22 07/07/24 08:19 07/07/24 08:02 37.1 C 112 H 18 121/75 07/07/24 06:45 112 H 07/07/24 06:17 116 H 07/07/24 00:35 07/07/24 00:35 37.0 C 113 H 18 134/77 07/06/24 23:00 146/92 H 07/06/24 23:00 146/92 H 07/06/24 23:00 146/92 H 07/06/24 23:00 146/92 H 07/06/24 23:00 122 H 32 H 07/06/24 22:42 129 H 24 Pulse Ox O2 Del Method O2 Flow Rate 07/07/24 09:38 90 Nasal Cannula 5 07/07/24 08:19 Nasal Cannula 5 07/07/24 08:02 92 Nasal Cannula 5 07/07/24 06:45 91 Nasal Cannula 5 07/07/24 06:17 90 Nasal Cannula 5 07/07/24 00:35 Nasal Cannula 4 07/07/24 00:35 95 Nasal Cannula 4 07/06/24 23:00 07/06/24 23:00 07/06/24 23:00 07/06/24 23:00 07/06/24 23:00 07/06/24 22:42 96 Laboratory Results 07/07/24 08:21 07/07/24 08:21 07/06/24 21:32: Mycoplasma pneumoniae (PCR) + Resident Activity Tracking Resident Involvement: Resident Care Provided Care Provided: Adult Hospital Medicine
[2024-07-07] MEDS: guaiFENesin/DEXTROM SYRUP 200MG/20MG 10ML UDC PO SCH (13:04)
[2024-07-07 13:11] LABS: Immunoglobulin A 219.9 mg/dl (70-400); Immunoglobulin M 103.3 mg/dl (45-281)
[2024-07-07] MEDS: ALBUT/IPRATROP 3MG/0.5MG NEB 3 ML VIAL NEB SCH (15:16)
[2024-07-07] MEDS: NICOTINE POLACRILEX 2 MG GUM MT PRN (23:10)
--- NOTE | 2024-07-08 07:22 | Hospitalist Progress Note ---
Date of Service July 08, 2024 Assessment & Plan (1) Infection, mycoplasma: Plan 23yo male with PMH of asthma presenting with > 1 week of cough, pleuritic chest pain, overall fatigue, and generalized weakness. Mycoplasma pneumonia - Diagnosed with PNA 06/30 at [facility] via CXR; took 5 days Augmentin - Respiratory Biofire panel + for Mycoplasma pneumoniae (PCR) - CT chest showing multifocal PNA - Continue IV Rocephin 1000mg daily and po Doxycycline 100mg BID - Continue supplemental O2; down from 5L to 2L n.c., wean as tolerated - Prednisone 40mg po qd x 5d for wheezing, possible asthma exacerbation - Tylenol as needed for pain or fever - Robitussin as needed for cough - Albuterol as needed for SOB or wheeze - Zofran as needed for nausea - Follow cultures sent from the ER; prelim results - no growth - Young, healthy individual w atypical PNA raised concern for immunocompromise HIV neg; TB tests pending IgG, IgA, and IgM wnl Ppx - low risk for DVT, encourage ambulation Code - Full Dispo - Admit to medical Admission and Anticipated Discharge Date Admission Date: July 06, 2024 Supervising Physician Co-Signing Physician Notes ATTESTATION I also saw the patient and confirmed de la cruz portions of the history and exam. I agree with the impression and plan in the resident documentation, and as summarized below. The patient is seen today; mother is at bedside. He is feeling better, but still quite fatigued. Describes being out of breath when ambulating to the bathroom earlier today. In discussion with the patient and his mother, he does have a previous diagnosis of exercise-induced asthma/active airway disease. He does not typically use an inhaler but he was prescribed when previously which he would find himself using with physical exertion and with upper respiratory infections. EXAM 127/86, 103, 16, 37 C, 95% nasal He is alert and oriented. He is speaking full sentences without pausing. Looks membranes are pink and moist Heart regular rate and rhythm. Auscultated rate upon my exam in the mid 80s. Lungs with crackles in the bases bilaterally he does have expiratory wheezing throughout. Abdomen soft and nontender DATA Labs CBC and BMP within normal limits Micro Blood cultures drawn 07/06/2024 showed no growth at 24 hours IMPRESSION & PLAN Mycoplasma pneumonia History of reactive airway disease Fairly typical course for mycoplasma - prolonged course of mild but progressive symptoms which eventually led to his ED presentation. I think there is an element of reactive airway disease/bronchospasm which is contributing to his dyspnea and requirement. Given this, I think addition of p.o. steroids may help accelerate his recovery. Will continue current antibiotics; once blood cultures returned negative, can likely reduce to doxycycline alone for mycoplasma coverage. Both patient and mother had questions with regards to his prognosis/projected recovery and what they should do with regards to his college enrollment. They did request a letter supporting a medical leave for the semester, which I think is reasonable. If we can wean the oxygen today, if blood cultures tomorrow are negative, should be ready for discharge tomorrow. I would expect he would need to recover for at least another week at home before returning to classes; discussed that full recovery to the point where he feels his preillness self may take up to a month. Additional per resident documentation Subjective Feeling okay today. Tired due to lack of sleep. Getting SOB easier too, like just by going to the bathroom. Has been using IS, reports feeling somewhat lightheaded after. Has been using albuterol occasionally, w good effect. Says cough is improving, though back is still sore from coughing. Endorses some loss of appetite. Denies fevers, chills, GALLOWAY, CP, n/v/c/d, abd pain, body aches. Extensive discussion w pt and his mother re: care plan, prognosis. They express concern about trying to recover while also trying to catch up on schoolwork. Requested letter to support medical withdrawal. Review of Systems 2 Review of Systems: Per HPI Physical Exam 2 Physical Exam: Gen: NAD, resting comfortably HEENT: NCAT, PERRL CV: RRR, no m/r/g, S1/S2 normal Resp: decreased breath sounds b/l bases, scattered b/l rales, symmetrical chest rise, breathing non-labored Abd: Soft, NT/ND, +BS, no HSM MSK: Full ROM, not ttp at location of soreness, no gross deformities Skin: Warm, dry, pink, no rashes or lesions Neuro: AOx3, CN II-XII grossly intact Psych: Mood-affect congruent. Somewhat anxious. Somewhat lacking insight into his condition Results & Data Results & Data Vital Signs (Past 12 Hours) Vital Signs Temp Pulse Resp BP Pulse Ox O2 Del Method O2 Flow Rate 07/08/24 07:16 98 H 15 90 Nasal Cannula 2 07/07/24 20:23 36.7 C 104 H 18 139/89 92 Nasal Cannula 2 07/07/24 20:10 Nasal Cannula 2 07/07/24 19:20 100 H 18 94 Nasal Cannula 2 Laboratory Results 07/08/24 07:04 07/08/24 07:04 Resident Activity Tracking Resident Involvement: Resident Care Provided Care Provided: Adult Hospital Medicine
[2024-07-08 07:58] LABS: Hematocrit (blood only) 40.9 % (42.0-52.0); Hemoglobin 14.2 g/dl (14.0-18.0); Mean Corpuscular Hemoglobin 29.2 pg (25.0-34.0); Mean Corpuscular Hgb Conc 34.7 g/dL (32.0-36.0); Mean Corpuscular Volume 84.2 fL (80.0-100.0); Mean Platelet Volume 9.9 fL (9.4-12.4); Platelet Count 358 K/uL (130-400); RDW Coefficient of Variation 11.8 % (11.5-14.5); RDW Standard Deviation 35.6 fL (36.4-46.3); Red Blood Count 4.86 M/uL (4.70-6.10)
[2024-07-08 08:11] LABS: BUN Creatinine Ratio 9.2 (10-20); Calcium 9.6 mg/dl (8.6-10.3); Creatinine Clr Calc Pharmacy 122.1 ml/min
[2024-07-08] MEDS: INFLUENZA VACC TS2024-25(6m+)/PF (IIV3) 0.5mL Syr IM ONE (09:31)
[2024-07-08] MEDS: predniSONE 20 MG TAB PO SCH (17:38)
--- NOTE | 2024-07-09 07:26 | Hospitalist Progress Note ---
Date of Service July 09, 2024 Assessment & Plan (1) Infection, mycoplasma: Plan 23yo male with PMH of asthma presenting with > 1 week of cough, pleuritic chest pain, overall fatigue, and generalized weakness. Mycoplasma pneumonia - Diagnosed with PNA 06/30 at [facility] via CXR; took 5 days Augmentin w/o improvement - CXR & CT chest 07/06 showed multifocal PNA - Respiratory Biofire panel + for Mycoplasma pneumoniae (PCR) - Blood cultures show no growth at 48h - Stopped supplemental O2 10 AM; monitor SpO2 closely, encourage inhaler use - Continue Rocephin 1000mg daily and Doxycycline 100mg BID; transition to po for discharge - Prednisone 40mg po daily x 5d for wheezing / possible asthma exacerbation, started 07/08 - Continue PRN Albuterol, Tylenol, Robitussin, and Zofran - Young, healthy individual w atypical PNA raised concern for immunocompromise HIV neg; TB tests pending IgG, IgA, and IgM wnl Ppx - low risk for DVT, encourage ambulation Code - Full Dispo - Admit to medical Admission and Anticipated Discharge Date Admission Date: July 06, 2024 Subjective Feeling much better today. Got first dose of pred last night ~6. Reports walking around after that, having lots more energy & less SOB. Feels his speech is less wheezy and cough is less frequent. Appetite is back. No GALLOWAY, CP, back pain, n/v/c/d, body aches. Still anxious about long-term recovery and whether to withdraw this semester. Review of Systems 2 Review of Systems: Per HPI Physical Exam 2 Physical Exam: Gen: NAD, resting comfortably HEENT: NCAT, PERRL CV: RRR, no m/r/g, S1/S2 normal Resp: decreased breath sounds b/l bases, symmetrical chest rise, breathing non- labored Abd: Soft, NT/ND, +BS, no HSM MSK: Full ROM, normal str Skin: Warm, dry, pink, no rashes or lesions Neuro: AOx3, CN II-XII grossly intact Psych: Mood-affect congruent. Somewhat anxious. Results & Data Results & Data Vital Signs (Past 12 Hours) Vital Signs Temp Pulse Resp BP BP Pulse Ox O2 Del Method 07/09/24 07:59 Nasal Cannula 07/09/24 07:35 36.6 C 95 H 16 137/80 92 Nasal Cannula 10/04/24 21:28 36.9 C 123 H 20 123/77 93 Nasal Cannula 07/08/24 20:14 114 H 18 92 Nasal Cannula 07/08/24 19:35 Nasal Cannula 07/08/24 17:49 Nasal Cannula 07/08/24 15:39 37.0 C 103 H 16 127/86 95 Nasal Cannula 07/08/24 12:18 107 H 123/81 91 Nasal Cannula 07/08/24 11:17 103 H 20 91 Nasal Cannula Laboratory Results 07/09/24 06:37 07/09/24 06:37 Resident Activity Tracking Resident Involvement: Resident Care Provided Care Provided: Adult Hospital Medicine
[2024-07-09 08:01] LABS: Hematocrit (blood only) 42.9 % (42.0-52.0); Hemoglobin 14.4 g/dl (14.0-18.0); Mean Corpuscular Hemoglobin 28.6 pg (25.0-34.0); Mean Corpuscular Hgb Conc 33.6 g/dL (32.0-36.0); Mean Corpuscular Volume 85.3 fL (80.0-100.0); Platelet Count 382 K/uL (130-400); RDW Coefficient of Variation 11.8 % (11.5-14.5); RDW Standard Deviation 35.8 fL (36.4-46.3); Red Blood Count 5.03 M/uL (4.70-6.10); White Blood Count 10.89 K/ul (4.8-10.8)
[2024-07-09 08:45] LABS: BUN Creatinine Ratio 16.5 (10-20); Calcium 9.6 mg/dl (8.6-10.3); Creatinine Clr Calc Pharmacy 151.4 ml/min; Potassium 4.1 mmol/L (3.5-5.1)
[2024-07-09 15:16] VITALS: TEMP 98.1
--- NOTE | 2024-07-09 15:21 | Discharge Summary ---
Date of Service July 09, 2024 Admission HPI Per Admitting Provider Raman Mcdonald is a 23yo male with history of asthma, PNA as a child presenting with 9 days of fever, night sweats, cough and congestion as well as sharp, pleuritic chest discomfort. Patient was seen at [facility] on 06/30/24 and was diagnosed with pneumonia by CXR. He was prescribed Augmentin which he has been taking this as prescribed. He reports that his fever improved, but overall he continues to have symptoms. Today he felt very light headed and short of breath. He reports that he has been at home alone as his roommate moved out because he didn't want to get sick. He has been having a difficult time getting out of bed, cooking for himself and has not been eating or drinking much due to fatigue and generalized weakness. He has also has had diarrhea. In the ER he is afebrile, tachycardic, saturating 87% on room air on arrival. He was placed on supplemental O2 by NC - presently saturating 93% on 3L NC. ER Course: Cefepime Doxycycline LR x 1L Admission Exam Per Admitting Provider General: patient resting comfortably, NAD, non-toxic in appearance, AA&O x 4, anxious Skin: warm, dry, intact, no rashes or lesions HEENT: NC/AT, PERRL, EOMI, anicteric sclera, conjunctiva without injection, external ear normal to inspection and nontender, nares patent, dry mucus membranes, dentition intact, no oropharyngeal lesions, neck supple, trachea midline, no LAD, no thyromegaly, no JVD Heart: +S1/S2, regular, tachycardic, no m/r/g Lungs: equal air entry bilaterally, some coarse breath sounds in bilateral bases, no wheezing, cough with deep breathing Abd: +BS, soft, NT/ND, no masses/organomegaly/ascites Ext: warm, 2+ pulses in UE/LE bilaterally, no clubbing/cyanosis or edema Neuro: nonfocal, patient AA&O x 4, speech intact, no facial droop, moving all extremities on command with equal strength 5/5 Principal Diagnosis Atypical pneumonia Discharge Exam Gen: NAD, WD/WN HEENT: NCAT, PERRL, no LAD CV: RRR, no m/r/g, S1/S2 normal Resp: Minimal expiratory wheezing throughout, breathing non-labored, symmetrical chest rise Abd: Soft, NT/ND, +BS, no HSM MSK: Full ROM, normal str, no gross deformities Skin: Warm, dry, pink, no rashes or lesions Neuro: AOx3, CN II-XII grossly intact Psych: Mood-affect congruent. Speech pace and content normal. Discharge Data Allergies Allergy/AdvReac Type Severity Reaction Status Date / Time tree nut Allergy Anaphylaxis Verified 07/07/24 01:12 Ordered Studies 07/09/24 06:37 07/09/24 06:37 Chest X-Ray 07/06/24 21:09 XR chest 1V portable HISTORY: 23 years-old Male Dyspnea acute shortness of breath COMPARISON: CTA chest of same day TECHNIQUE: AP view of the chest FINDINGS: Heart size is normal. There is no pneumothorax or large pleural effusion. Patchy multifocal air space opacities are most pronounced within the right greater than left lung bases. Mixed interstitial and alveolar opacities within the mid to upper lung zones. Bones appear normal. IMPRESSION: Multifocal pneumonia. Electronically signed by: Boo Singh M.D. 07/07/2024 6:53 AM Chest CTA 07/06/24 21:35 EXAM: CT Angiography Chest With Intravenous Contrast FINDINGS: Pulmonary arteries: Unremarkable. No pulmonary embolism. Aorta: No acute findings. No thoracic aortic aneurysm. Lungs: Bilateral airspace consolidations, preferentially involving the lower lobes, consistent with multilobar pneumonia. Pleural space: Unremarkable. No significant effusion. No pneumothorax. Heart: Unremarkable. No cardiomegaly. No significant pericardial effusion. No evidence of RV dysfunction. Bones/joints: No acute fracture. No dislocation. Soft tissues: Unremarkable. Lymph nodes: Unremarkable. No enlarged lymph nodes. IMPRESSION: 1. No pulmonary embolism. 2. Bilateral airspace consolidations, preferentially involving the lower lobes, consistent with multilobar pneumonia. Electronically signed by: Kash Damico MD 07/07/24 00:05 AM Hospital Course (1) Infection, mycoplasma: Raman is a 23yo healthy male with PMH asthma, who presented with ~9 days of fevers, cough, sob, and chest pain. - Diagnosed with PNA 06/30 at [facility] via CXR; took 5 days Augmentin w/o improvement - CXR & CT chest 07/06 showed multifocal PNA - Respiratory Biofire panel + for Mycoplasma pneumoniae (PCR) - Blood cultures show no growth at 48h - Young, healthy individual w atypical PNA raised concern for immunocompromise HIV neg; IgG, IgA, and IgM wnl TB tests pending - Stopped supplemental O2 10/5 AM; pt maintained SpO2 > 90% on room air - Given IV Rocephin 1000mg daily and Doxycycline 100mg BID during his stay - Discharged on po Doxycycline 100mg BID for 7 more days, for a total tx course of 10 days - Prednisone 40mg po daily x 5d for wheezing / asthma exacerbation, started 07/08 - Prescribed Albuterol inhaler, 2 puffs, as needed for likely exercise-induced asthma Total Time Total Time Spent Total Time Spent (In Minutes): 40 minutes Discharge Plan Discharge Items Patient Disposition: Home - Self-Care Reason For Visit: PEUMONIA, HYPOXIA Discharge Diagnosis: Atypical pneumonia Activity: Per Instructions section Non-emergency contact: Primary Care Provider Call non-emergency contact if: you have any medication questions, your symptoms worsen and your temperature is above 101 Follow-up/Referrals: [facility] [Primary Care Provider] - Hermes Lizama MD [Resident] - Diet: Regular Addtl Attending Provider Instructions: You were recently diagnosed with pneumonia, which was not improved with several days of Augmentin (amoxicillin-clavulanate). You were admitted to the hospital for continued fevers, cough, chest pain, and trouble breathing. Our tests and imaging showed that you had a multifocal pneumonia due to Mycoplasma pneumoniae infection, meaning multiple lobes on both lungs were affected. You were treated with 100mg doxycycline twice a day, as well as supportive measures such as supplemental oxygen, Tylenol for fevers and pain, and Robitussin for your cough. You were still having some wheezing and shortness of breath even with the antibiotics, which may be related to your known history of asthma getting exacerbated by this new infection. We started you on prednisone, which improved your symptoms significantly, and had an inhaler available for you as needed. Because you caught an infection with bacteria that is relatively rare in healthy individuals, we also ran some labs to check your immune function. These tests were just precautionary, and all came back normal. Because you are feeling better, have not had fevers, and are able to breathe / maintain good saturation without supplemental oxygen, you are now safe to leave the hospital and finish recovering at home. What you can expect going forward is several weeks of recovery, which will require some adjustments from your normal lifestyle, but it is important to keep in mind that we see no reason you might not eventually return to your normal level of health. Get lots of rest, be kind to your body, and remember that recovery isn't always a linear progression but can involve better or worse days. As discussed, this first week after discharge will be the hardest. We are sending you home with the following medications: Doxycycline 100mg - Take one capsule tonight, and then take one capsule twice each day for the next seven days. Your treatment course should end on 07/16 Prednisone 20mg - Take two tablets (so 40 mg) daily for 3 more days Albuterol - take 2 puffs of the inhaler as needed if you have shortness of breath or worsening wheeze Take your medications as instructed; do not skip a dose. By the end of this week, your breathing should improve, and you can resume some daily activities. Schedule a follow-up appointment with your primary care physician, [facility], or with us within a week of discharge. You can call our office at [phone] and ask to schedule an appointment with Dr. Lizama. Over the next few weeks, continue getting plenty of rest and hydration. Do not overtax yourself, such as trying to return to normal gym workouts right away. Increase your activity level slowly, as your breathing allows, and use your inhaler as needed. Contact us or your PCP if you do not see symptom improvement even after a few weeks. If you or your family have any other questions or concerns, you can call the number above and leave a message for Dr. Lizama. Thank you for allowing us to participate in your care. Pending Studies at Discharge: Yes Studies:: TB Stand-Alone Forms: My [facility] [place], Smoking Cessation Medications and DC Order Prescriptions: New prednisone 20 mg Tablet 40 mg PO DAILY 3 Days Qty: 6 0RF doxycycline hyclate 100 mg capsule 100 mg PO BID 8 Days Qty: 15 0RF Rx Instructions: Take 1 capsule tonight (07/09) Then take 1 capsule twice daily for 7 days albuterol sulfate [Ventolin HFA] 90 mcg/actuation Hfa Aerosol Inhaler 2 puff inhalation Q6H PRN (Reason: shortness of breath or wheezing) 30 Days Qty: 8.5 0RF Discharge Orders: Discharge Order (Routine); Ordered 07/09/24 Ordered By: Hermes Melton/Other Patient Handouts: Pneumonia Mycoplasma Admission Data Admit Date/Time: 07/06/24 23:02 Attending Provider: Josue Alston Admit Provider: Rossy Sandoval Primary Care Provider: [facility] Other Interventions: Discharge Summary Assessment (RN) Last Done: 07/09/24 15:47 Supervising Physician Co-Signing Physician Notes ATTESTATION I also saw the patient and confirmed de la cruz portions of the history and exam. I agree with the impression and plan in the resident documentation, and as summarized below. Feeling much better today. Oxygen saturations are appropriate on room air. He is completing ADLs without dyspnea. He is looking forward to discharge. EXAM Vital signs as noted He is alert and oriented. He is speaking full sentences without pausing. mucous membranes are pink and moist Heart regular rhythm; slightly tachycardic, though less than documented Lung exam is much improved; wheezing has resolved; air movement in the bases has improved. deep inspiration does trigger cough Abdomen soft and nontender DATA Labs CBC and BMP within normal limits; subtle leukocytosis likely attributable to addition of steroids Micro Blood cultures drawn 07/06/2024 showed no growth at 48 hours IMPRESSION & PLAN Mycoplasma pneumonia History of reactive airway disease Fairly typical course for mycoplasma - prolonged course of mild but progressive symptoms which eventually led to his ED presentation. His wheezing today is improved with the addition of prednisone yesterday; as noted in previous notes, he does have a history consistent with reactive airway disease. He does have some mild tachycardia which I suspect is multifactorial - prednisone, caffeine, and some baseline anxiety. Recommended that he cut back a little on his caffeine (he had several cans of soda in the room) while on the prednisone. Reassurance provided, given his age mild tachycardia is not concerning. Given negative blood culture and identification of mycoplasma by PCR, I discontinue Rocephin and switch to oral doxycycline to complete 10-day course. I provided a letter to support the patient's decision for a medical withdrawal from his college semester. Recommend he recuperate at home next week. Discussed gradual increase of activity and exercise. Reinforced that he may need up to 3-4 weeks until he feels return to his baseline in terms of activity. Will need PCP follow-up in about 1 week. If he returns to his home, that could be with his previous PCP; if remains here in [place], could be at [facility] or at our [facility] office. Doxycycline 100 mg twice daily x 7 additional days prednisone 40 mg daily x 3 additional days albuterol MDI 1 to 2 puffs every 4-6 hours as needed Additional per resident documentation Resident Activity Tracking Resident Involvement: Resident Care Provided Care Provided: Adult [facility]
[2024-07-09 15:46] VITALS: BP 129/72
[2024-07-09 16:20] VITALS: PULSE 120; RESP 17; O2SAT 93
[2024-07-10 14:17] LABS: Quantiferon Mitogen-NIL >10.00 IU/mL; Quantiferon NIL 0.06 IU/mL; Quantiferon TB Gold Plus NEGATIVE (NEGATIVE); Quantiferon TB2-NIL <0.00 IU/mL
== END 2024-07-09 16:47 | disposition home or self-care (01) | DRG 195 ==
LOC: ED 20:58 → 3N 23:02 → SUATTDRO 23:02 → 3N 07-07 00:23